=== PATIENT | male | born 1970 | race Caucasian/White ===

== ENCOUNTER 2020-08-13 08:04 | Day surgery (SDCO) | payer OTHER ==
[~2020-08-13] VITALS: Ht 160 cm; Wt 57.2 kg
[~2020-08-13 08:04] MED LIST: ASPIRIN CHEWABL81 MG PO; PRINIVIL20 MG PO
[2020-08-13 09:05] LABS: ALBUMIN 3.9 g/dL (3.4-5.0); ALKALINE PHOSHATASE 68 U/L (46-116); ALT 45 U/L (16-63); AST 39 U/L (15-37); BILIRUBIN - TOTAL 0.5 mg/dL (0.2-1.0); BUN 15 mg/dL (7-18); BUN/CREAT RATIO (CALC) 17.9 RATIO; CHLORIDE 103 mmol/L (98-107); CO2 (BICARBONATE) 25 mmol/L (21-32); CREATININE 0.84 mg/dL (0.67-1.17); GLOBULIN (CALCULATION) 4.2 g/dL; GLUCOSE 100 mg/dL (74-106); LIPASE 78 U/L (73-393); MAGNESIUM 1.9 mg/dL (1.8-2.4); POTASSIUM 4.4 mmol/L (3.5-5.1); TOTAL PROTEIN 8.1 g/dL (6.4-8.2)
[2020-08-13 09:26] LABS: BASOPHIL 0.3 % (0-2); EOSINOPHIL 0.5 % (0-5); HCT 45.8 % (42.0-52.0); HGB 15.8 g/dl (13.2-18.0); LYMPHOCYTE 17.2 % (15-48); MCH 33.3 pg (25.0-31.0); MCHC 34.5 g/dL (32.0-36.0); MCV 96.6 fL (78.0-100.0); MONOCYTE 7.2 % (0-12); NEUTROPHIL 74.3 % (41-80); NRBC 0; PLT 213 K/uL (150-400); RBC 4.74 M/uL (4.70-6.00); RDW 13.2 % (11.5-14.0); WBC 9.6 K/uL (4.0-10.5)
[2020-08-13 09:26] LABS: BILIRUBIN NEGATIVE (NEGATIVE); BLOOD NEGATIVE Ery/uL (NEGATIVE); CLARITY CLEAR (CLEAR); COLOR YELLOW (YELLOW); GLUCOSE (U) NORMAL (NORMAL); LEUKOCYTES NEGATIVE Leu/uL (NEGATIVE); NITRITE NEGATIVE (NEGATIVE); PROTEIN NEGATIVE (NEGATIVE); SPECIFIC GRAVITY 1.025 (1.001-1.030); UROBILINOGEN 0.2 mg/dL (0.2-1.0)
[2020-08-13] MEDS ORDERED: PRAVACHOL20 MG PO (14:10)
[2020-08-13] MEDS ORDERED: ATENOLOL25 MG PO ×2 (14:11→14:14)
[2020-08-13] MEDS ORDERED: COZAAR100 MG PO (14:12)
[2020-08-13] MEDS ORDERED: SILDENAFIL20 MG PO (14:13)
[2020-08-14 05:28] LABS: BASOPHIL 0.3 % (0-2); EOSINOPHIL 2.3 % (0-5); HCT 41.4 % (42.0-52.0); HGB 14.1 g/dl (13.2-18.0); LYMPHOCYTE 23.7 % (15-48); MCH 33.1 pg (25.0-31.0); MCHC 34.1 g/dL (32.0-36.0); MCV 97.2 fL (78.0-100.0); MPV 9.5 fL (6.0-9.5); NEUTROPHIL 64.6 % (41-80); NRBC 0; PLT 171 K/uL (150-400); RBC 4.26 M/uL (4.70-6.00); RDW 13.1 % (11.5-14.0); WBC 7.5 K/uL (4.0-10.5)
[2020-08-14 05:40] LABS: ALBUMIN 3.1 g/dL (3.4-5.0); BILIRUBIN - TOTAL 0.6 mg/dL (0.2-1.0); BUN/CREAT RATIO (CALC) 10.8 RATIO; CREATININE 0.83 mg/dL (0.67-1.17); GLOBULIN (CALCULATION) 3.4 g/dL; PHOSPHORUS 3.4 mg/dL (2.6-4.7); POTASSIUM 3.9 mmol/L (3.5-5.1); TOTAL PROTEIN 6.5 g/dL (6.4-8.2)
--- NOTE | 2020-08-14 16:26 | NUR ---
08/14/20 Mr. Villa lives at home with his spouse. 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 [employer] reports him to be ineligible for Medicaid. He is eligible for [employer]. - Mr. Villa has a PCP, Donna Ramírez. - He was educated to the [facility], [email or web address], [employer] and [facility].
[2020-08-15 06:06] LABS: BASOPHIL 0.5 % (0-2); HCT 42.2 % (42.0-52.0); HGB 14.2 g/dl (13.2-18.0); LYMPHOCYTE 36.2 % (15-48); MCH 32.8 pg (25.0-31.0); MCHC 33.6 g/dL (32.0-36.0); MCV 97.5 fL (78.0-100.0); MPV 9.6 fL (6.0-9.5); NEUTROPHIL 50.1 % (41-80); NRBC 0; PLT 182 K/uL (150-400); RBC 4.33 M/uL (4.70-6.00); WBC 6.3 K/uL (4.0-10.5)
[2020-08-15 06:31] LABS: BUN/CREAT RATIO (CALC) 7.3 RATIO; CREATININE 0.96 mg/dL (0.67-1.17); POTASSIUM 4.1 mmol/L (3.5-5.1)
--- NOTE | 2020-08-15 12:14 | NUR ---
CALLED [facility] AT [phone] INFORMED OF PT NEEDING A VASCULAR SURGEON APPOINTMENT. AND PT BEING SELFPAY
[2020-08-15] MEDS ORDERED: CIPRO500 MG PO (13:48)
[2020-08-15] MEDS ORDERED: IBUPROFEN800 MG PO (13:48)
[2020-08-15] MEDS ORDERED: METRONIDAZOLE500 MG PO (13:48)
--- NOTE | 2020-08-15 14:26 | NUR ---
08/15/20 Patient was provided with a voucher for rxs at [facility].
== END 2020-08-15 15:18 | disposition home or self-care (01) ==
LOC: FER 08:04 → FMS 12:20 → FER 12:46 → FMS 12:46
PROVIDERS: Emergency Medicine; Internal Medicine; ADMIT Internal Medicine
DX: K52.9 Noninfective gastroenteritis and colitis, unspecified (principal); I10 Essential (primary) hypertension; I70.8 Atherosclerosis of other arteries; E78.5 Hyperlipidemia, unspecified; F17.210 Nicotine dependence, cigarettes, uncomplicated; F10.20 Alcohol dependence, uncomplicated; G89.29 Other chronic pain; M54.5 Low back pain; Z86.73 Personal history of transient ischemic attack (TIA), and cerebral infarction without residual deficits; Z79.899 Other long term (current) drug therapy; Z20.822 Contact with and (suspected) exposure to COVID-19; Y90.0 Blood alcohol level of less than 20 mg/100 ml
CPT/HCPCS: 36415; 72193; 80048; 80053; 80061; 81003; 83605; 83690; 83735; 84100; 84145; 84484; 85025; 93005; 94762; G0378; G0480; J1170; J1650; J1956; J2270; J2405; J3411; J3475; J7030; J7120; Q9967; U0002

== ENCOUNTER → 2020-12-08 | Day surgery (SDC) | payer OTHER ==
[~2020-12-08] VITALS: Ht 160 cm; Wt 59.0 kg
[~2020-12-08] MED LIST changes: +ASPIRIN325 MG PO; +ATENOLOL25 MG PO; +CIPRO500 MG PO; +COZAAR100 MG PO; +IBUPROFEN800 MG PO; +METRONIDAZOLE500 MG PO; +NORVASC 10MG TA10 MG PO; +PLAVIX75 MG PO; +PRAVACHOL20 MG PO; +REVATIO 20MG TA20 MG PO; +SILDENAFIL20 MG PO
== END | disposition home or self-care (01) ==
LOC: FAS 08:51
DX: D12.0 Benign neoplasm of cecum (principal); K52.9 Noninfective gastroenteritis and colitis, unspecified; Z80.0 Family history of malignant neoplasm of digestive organs; F17.210 Nicotine dependence, cigarettes, uncomplicated; I10 Essential (primary) hypertension; E78.00 Pure hypercholesterolemia, unspecified; I74.5 Embolism and thrombosis of iliac artery; E55.9 Vitamin D deficiency, unspecified; Z88.8 Allergy status to other drugs, medicaments and biological substances; Z79.82 Long term (current) use of aspirin; Z79.02 Long term (current) use of antithrombotics/antiplatelets; Z95.828 Presence of other vascular implants and grafts
CPT/HCPCS: J2704; J7120

== ENCOUNTER → 2021-03-04 | Day surgery (SDC) | payer OTHER ==
[~2021-03-04] VITALS: Ht 162.6 cm; Wt 61.2 kg
== END | disposition home or self-care (01) ==
LOC: FAS 03-02 12:15
DX: R10.13 Epigastric pain (principal); R10.11 Right upper quadrant pain; K31.9 Disease of stomach and duodenum, unspecified; I10 Essential (primary) hypertension; E78.5 Hyperlipidemia, unspecified; I73.9 Peripheral vascular disease, unspecified; J44.9 Chronic obstructive pulmonary disease, unspecified; F17.210 Nicotine dependence, cigarettes, uncomplicated; Z88.8 Allergy status to other drugs, medicaments and biological substances; Z79.82 Long term (current) use of aspirin; Z79.02 Long term (current) use of antithrombotics/antiplatelets; Z20.822 Contact with and (suspected) exposure to COVID-19
CPT/HCPCS: J2250; J2704; J7120; U0002

== ENCOUNTER → 2021-04-27 | Day surgery (SDC) | payer OTHER ==
[~2021-04-27] VITALS: Ht 162.6 cm; Wt 61.2 kg
[~2021-04-27] MED LIST changes: +ACETAMINOPHEN500 M1 PO; +COLACE100 MG PO; +MOTRIN600 MG PO; +OXY-IR 5MG5 MG PO
== END | disposition home or self-care (01) ==
LOC: FAS 08:27
DX: K81.1 Chronic cholecystitis (principal); Z95.828 Presence of other vascular implants and grafts; Z88.8 Allergy status to other drugs, medicaments and biological substances; Z79.02 Long term (current) use of antithrombotics/antiplatelets; Z79.82 Long term (current) use of aspirin
CPT/HCPCS: J0690; J1100; J1170; J1644; J2250; J2405; J2704; J3010; J7120